=== PATIENT | female | born 1955 | race Two or more races ===

== ENCOUNTER 2017-04-02 12:43 | Emergency (ER) | payer MEDICAID ==
[~2017-04-02] VITALS: Ht 157.5 cm; Wt 72.6 kg
[~2017-04-02 12:43] MED LIST: BACTRIM DS TAB1 EAC1 ORAL; HYDROCHLOROTH12.5 M2 ORAL; HYDROCODON-ACE1 EA15 ORAL; IBUPROFEN600 MG ORAL; KEFLEX500 MG ORAL; METFORMIN HCL500 M1 ORAL; NORCO 5-325 TA1 EACH ORAL; TIZANIDINE HCL4 MG ORAL; ZOCOR40 MG ORAL
[2017-04-02 13:00] VITALS: BP 142/91
[2017-04-02 14:34] LABS: APPEARANCE,URINE TURBID; BILIRUBIN, URINE 1+ (NEGATIVE); COLOR,URINE BROWN; GLUCOSE, URINE (UA) NEGATIVE (NEGATIVE); KETONES,URINE NEGATIVE (NEGATIVE); LEUKOCYTE ESTERASE ,URINE 3+ (NEGATIVE); NITRITE,URINE POSITIVE (NEGATIVE); PH,URINE 5 (4.5-8.0); PROTEIN,URINE 3+ (NEGATIVE); UROBILINOGEN,URINE 1 MG/DL (0.0-1.0)
[2017-04-02] MEDS ORDERED: PHENAZOPYRIDIN100 MG ORAL (15:29)
[2017-04-02] MEDS ORDERED: KEFLEX500 MG ORAL (15:29)
[2017-04-02] MEDS ORDERED: Cephalexin 500mg cap ORAL ONE (15:30)
[2017-04-02 15:40] VITALS: BP 142/91
--- NOTE | 2017-04-03 07:14 | Emergency Room Report ---
History of Present Illness General Chief Complaint: Pelvic Pain Source: Patient Present Illness HPI Patient is a 62-year-old female presented after increased urinary frequency as well as burning. Patient gradual onset of symptoms. She reported having a burning sensation for the past 3 days. She subsequently developed some mild bleeding. She had not been having any vomiting or diarrhea. She denied any flank pain. Allergies: Coded Allergies: No Known Allergies (Unverified , 11/23/13) Patient History Past Medical History: see triage record Last Menstrual Period: 14 yrs ago Reviewed Nursing Documentation: PMH: Agreed, PSxH: Agreed Nursing Documentation-PMH Past Medical History: No Stated History Hx Hypertension: Yes Hx Diabetes: Yes Review of Systems All Other Systems: negative except mentioned in HPI Physical Exam Vital Signs Date Time Temp Pulse Resp B/P (MAP) Pulse Ox O2 Delivery O2 Flow Rate FiO2 04/02/17 12:51 98.6 116 16 142/91 100 Room Air General Appearance: well appearing, no apparent distress, alert, GCS 15 Head: normocephalic, atraumatic ENT: hearing grossly normal, normal voice Neck: full range of motion, supple Respiratory: no respiratory distress, speaking full sentences Cardiovascular #1: normal inspection, regular rate, rhythm Gastrointestinal: normal inspection, soft Genitourinary: deferred Musculoskeletal: normal inspection, back normal, gait/station normal, no calf tenderness Neurologic: normal inspection, alert, oriented x3, responsive, bill poster installer III-XII nml as tested, motor strength/tone normal, normal gait Psychiatric: normal inspection, mood/affect normal Skin: no rash Medical Decision Making Diagnostic Impression: Primary Impression: Urinary tract infection Additional Impression: Hematuria ER Course Patient presented for dysuria. Differential diagnosis included was not limited to appendicitis, urinary tract infection, pelvic inflammatory disease, urethritis, herpes among others. The patient presented for what appears to urinary infection. The patient denies any heavy vaginal bleeding however she is advised to followup with DIRECTOR FINANCIAL PLANNING for further evaluation. The patient given oral Keflex. The patient is advised to follow up with primary care doctor in 1 -2 days. Patient is advised to return if any worsening condition or if any changes in status that are concerning. Labs Test 04/02/17 12:57 Urine Color Brown Urine Appearance Turbid Urine pH 5 (4.5-8.0) Urine Specific [place] 1.020 (1.005-1.035) Urine Protein 3+ (NEGATIVE) Urine Glucose (UA) Negative (NEGATIVE) Urine Ketones Negative (NEGATIVE) Urine Occult Blood 5+ (NEGATIVE) Urine Nitrite Positive (NEGATIVE) Urine Bilirubin 1+ (NEGATIVE) Urine Ictotest Negative Urine Urobilinogen 1 MG/DL (0.0-1.0) Urine Leukocyte Esterase 3+ (NEGATIVE) Urine RBC Tntc /HPF (0 - 2) Urine WBC Tntc /HPF (0 - 2) Urine Squamous Epithelial Cells Moderate /LPF (NONE/OCC) Urine Bacteria Moderate /HPF (NONE) Last Vital Signs Date Time Temp Pulse Resp B/P (MAP) Pulse Ox O2 Delivery O2 Flow Rate FiO2 04/02/17 15:40 98.6 78 16 142/91 100 Room Air Status: improved Disposition: HOME, SELF-CARE Condition: Stable Scripts Phenazopyridine Hcl* (PYRIDIUM*) 100 Mg Tablet 100 MG ORAL THREE TIMES A DAY, #6 TAB Prov: Oscar Tavera 04/02/17 Cephalexin* (KEFLEX*) 500 Mg Capsule 500 MG ORAL Q6H, #28 CAP 0 Refills Prov: Oscar Tavera 04/02/17 Patient Instructions: Urinary Tract Infection, [id number] Oscar Tavera Apr 03, 2017 07:14
--- NOTE | 2017-04-03 07:14 | Emergency Room Report ---
History of Present Illness General Chief Complaint: Pelvic Pain Source: Patient Present Illness HPI Patient is a 62-year-old female presented after increased urinary frequency as well as burning. Patient gradual onset of symptoms. She reported having a burning sensation for the past 3 days. She subsequently developed some mild bleeding. She had not been having any vomiting or diarrhea. She denied any flank pain. Allergies: Coded Allergies: No Known Allergies (Unverified , 11/23/13) Patient History Past Medical History: see triage record Last Menstrual Period: 14 yrs ago Reviewed Nursing Documentation: PMH: Agreed, PSxH: Agreed Nursing Documentation-PMH Past Medical History: No Stated History Hx Hypertension: Yes Hx Diabetes: Yes Review of Systems All Other Systems: negative except mentioned in HPI Physical Exam Vital Signs Date Time Temp Pulse Resp B/P (MAP) Pulse Ox O2 Delivery O2 Flow Rate FiO2 04/02/17 12:51 98.6 116 16 142/91 100 Room Air General Appearance: well appearing, no apparent distress, alert, GCS 15 Head: normocephalic, atraumatic ENT: hearing grossly normal, normal voice Neck: full range of motion, supple Respiratory: no respiratory distress, speaking full sentences Cardiovascular #1: normal inspection, regular rate, rhythm Gastrointestinal: normal inspection, soft Genitourinary: deferred Musculoskeletal: normal inspection, back normal, gait/station normal, no calf tenderness Neurologic: normal inspection, alert, oriented x3, responsive, inspector material disposition III-XII nml as tested, motor strength/tone normal, normal gait Psychiatric: normal inspection, mood/affect normal Skin: no rash Medical Decision Making Diagnostic Impression: Primary Impression: Urinary tract infection Additional Impression: Hematuria ER Course Patient presented for dysuria. Differential diagnosis included was not limited to appendicitis, urinary tract infection, pelvic inflammatory disease, urethritis, herpes among others. The patient presented for what appears to urinary infection. The patient denies any heavy vaginal bleeding however she is advised to followup with REGISTERED DIETITIAN for further evaluation. The patient given oral Keflex. The patient is advised to follow up with primary care doctor in 1 -2 days. Patient is advised to return if any worsening condition or if any changes in status that are concerning. Labs Test 04/02/17 12:57 Urine Color Brown Urine Appearance Turbid Urine pH 5 (4.5-8.0) Urine Specific [place] 1.020 (1.005-1.035) Urine Protein 3+ (NEGATIVE) Urine Glucose (UA) Negative (NEGATIVE) Urine Ketones Negative (NEGATIVE) Urine Occult Blood 5+ (NEGATIVE) Urine Nitrite Positive (NEGATIVE) Urine Bilirubin 1+ (NEGATIVE) Urine Ictotest Negative Urine Urobilinogen 1 MG/DL (0.0-1.0) Urine Leukocyte Esterase 3+ (NEGATIVE) Urine RBC Tntc /HPF (0 - 2) Urine WBC Tntc /HPF (0 - 2) Urine Squamous Epithelial Cells Moderate /LPF (NONE/OCC) Urine Bacteria Moderate /HPF (NONE) Last Vital Signs Date Time Temp Pulse Resp B/P (MAP) Pulse Ox O2 Delivery O2 Flow Rate FiO2 04/02/17 15:40 98.6 78 16 142/91 100 Room Air Status: improved Disposition: HOME, SELF-CARE Condition: Stable Scripts Phenazopyridine Hcl* (PYRIDIUM*) 100 Mg Tablet 100 MG ORAL THREE TIMES A DAY, #6 TAB Prov: Oscar Tavera 04/02/17 Cephalexin* (KEFLEX*) 500 Mg Capsule 500 MG ORAL Q6H, #28 CAP 0 Refills Prov: Oscar Tavera 04/02/17 Patient Instructions: Urinary Tract Infection, [id number] Oscar Tavera Apr 03, 2017 07:14
--- NOTE | 2017-04-03 07:14 | Emergency Room Report ---
History of Present Illness General Chief Complaint: Pelvic Pain Source: Patient Present Illness HPI Patient is a 62-year-old female presented after increased urinary frequency as well as burning. Patient gradual onset of symptoms. She reported having a burning sensation for the past 3 days. She subsequently developed some mild bleeding. She had not been having any vomiting or diarrhea. She denied any flank pain. Allergies: Coded Allergies: No Known Allergies (Unverified , 11/23/13) Patient History Past Medical History: see triage record Last Menstrual Period: 14 yrs ago Reviewed Nursing Documentation: PMH: Agreed, PSxH: Agreed Nursing Documentation-PMH Past Medical History: No Stated History Hx Hypertension: Yes Hx Diabetes: Yes Review of Systems All Other Systems: negative except mentioned in HPI Physical Exam Vital Signs Date Time Temp Pulse Resp B/P (MAP) Pulse Ox O2 Delivery O2 Flow Rate FiO2 04/02/17 12:51 98.6 116 16 142/91 100 Room Air General Appearance: well appearing, no apparent distress, alert, GCS 15 Head: normocephalic, atraumatic ENT: hearing grossly normal, normal voice Neck: full range of motion, supple Respiratory: no respiratory distress, speaking full sentences Cardiovascular #1: normal inspection, regular rate, rhythm Gastrointestinal: normal inspection, soft Genitourinary: deferred Musculoskeletal: normal inspection, back normal, gait/station normal, no calf tenderness Neurologic: normal inspection, alert, oriented x3, responsive, executive producer promos III-XII nml as tested, motor strength/tone normal, normal gait Psychiatric: normal inspection, mood/affect normal Skin: no rash Medical Decision Making Diagnostic Impression: Primary Impression: Urinary tract infection Additional Impression: Hematuria ER Course Patient presented for dysuria. Differential diagnosis included was not limited to appendicitis, urinary tract infection, pelvic inflammatory disease, urethritis, herpes among others. The patient presented for what appears to urinary infection. The patient denies any heavy vaginal bleeding however she is advised to followup with IMPLEMENTATION SPECIALIST [facility] for further evaluation. The patient given oral Keflex. The patient is advised to follow up with primary care doctor in 1 -2 days. Patient is advised to return if any worsening condition or if any changes in status that are concerning. Labs Test 04/02/17 12:57 Urine Color Brown Urine Appearance Turbid Urine pH 5 (4.5-8.0) Urine Specific [place] 1.020 (1.005-1.035) Urine Protein 3+ (NEGATIVE) Urine Glucose (UA) Negative (NEGATIVE) Urine Ketones Negative (NEGATIVE) Urine Occult Blood 5+ (NEGATIVE) Urine Nitrite Positive (NEGATIVE) Urine Bilirubin 1+ (NEGATIVE) Urine Ictotest Negative Urine Urobilinogen 1 MG/DL (0.0-1.0) Urine Leukocyte Esterase 3+ (NEGATIVE) Urine RBC Tntc /HPF (0 - 2) Urine WBC Tntc /HPF (0 - 2) Urine Squamous Epithelial Cells Moderate /LPF (NONE/OCC) Urine Bacteria Moderate /HPF (NONE) Last Vital Signs Date Time Temp Pulse Resp B/P (MAP) Pulse Ox O2 Delivery O2 Flow Rate FiO2 04/02/17 15:40 98.6 78 16 142/91 100 Room Air Status: improved Disposition: HOME, SELF-CARE Condition: Stable Scripts Phenazopyridine Hcl* (PYRIDIUM*) 100 Mg Tablet 100 MG ORAL THREE TIMES A DAY, #6 TAB Prov: Oscar Tavera 04/02/17 Cephalexin* (KEFLEX*) 500 Mg Capsule 500 MG ORAL Q6H, #28 CAP 0 Refills Prov: Oscar Tavera 04/02/17 Patient Instructions: Urinary Tract Infection, [id number] Oscar Tavera Apr 03, 2017 07:14
== END 2017-04-02 16:04 | disposition home or self-care (01) ==
LOC: EMR 13:05
DX: N39.0 Urinary tract infection, site not specified (principal); R31.9 Hematuria, unspecified; I10 Essential (primary) hypertension; E11.9 Type 2 diabetes mellitus without complications
CPT/HCPCS: 81003; 87086; 87181; 99284

== ENCOUNTER 2017-06-15 11:01 | Emergency (ER) | payer MEDICAID ==
[~2017-06-15] VITALS: Ht 157.5 cm; Wt 68.0 kg
[~2017-06-15 11:01] MED LIST changes: +PHENAZOPYRIDIN100 MG ORAL
[2017-06-15] MEDS ORDERED: LISINOPRIL40 MG ORAL (11:12)
[2017-06-15] MEDS ORDERED: OMEPRAZOLE20 M2 ORAL (11:12)
[2017-06-15] MEDS ORDERED: Norco 5mg/325mg tab ORAL ONE (12:15)
--- NOTE | 2017-06-15 13:14 | Diagnostic Imaging Report ---
Indication: Pain 3 views of the right knee were obtained. Findings: No acute fracture, malalignment, or joint effusion are identified. Joint space is relatively well-maintained. Marginal spurs are present. Impression: Negative for acute findings.
--- NOTE | 2017-06-15 13:26 | Emergency Room Report ---
History of Present Illness General Chief Complaint: Pain Source: Patient Present Illness HPI 62-year-old female presents to the emergency department complaining of 9/10 in severity right calf and knee pain x3 days. Patient reports that when she walks her pain is exacerbated to 10 out of 10 in severity. Patient states pain began in the posterior calf it then radiated anteriorly and up into the right knee. Patient denies trauma or fall denies recent open wounds, bruises, erythema or increased temperature palpation, denies swelling. Denies history of recent travel or hormone replacement. Denies CP, Palpitations, LOC, AMS, dizziness, Changes in Vision, Sensation, paresthesias, or a sudden severe headache. pmhx of DM and HTN. Allergies: Coded Allergies: No Known Allergies (Unverified , 11/23/13) Patient History Past Medical History: see triage record Past Surgical History: none Pertinent Family History: none Last Menstrual Period: 2005 Reviewed Nursing Documentation: PMH: Agreed, PSxH: Agreed Nursing Documentation-PMH Hx Hypertension: Yes Hx Diabetes: Yes Review of Systems All Other Systems: negative except mentioned in HPI Physical Exam Vital Signs Date Time Temp Pulse Resp B/P (MAP) Pulse Ox O2 Delivery O2 Flow Rate FiO2 06/15/17 11:06 98.1 92 21 162/99 98 Room Air Sp02 EP Interpretation: reviewed, normal General Appearance: no apparent distress, alert, GCS 15, non-toxic Head: normocephalic, atraumatic ENT: hearing grossly normal, normal voice Neck: full range of motion Respiratory: lungs clear, normal breath sounds, speaking full sentences Cardiovascular #1: regular rate, rhythm, no edema, normal capillary refill Cardiovascular #2: 2+ dorsalis pedis (R), 2+ dorsalis pedis (L) Rectal: deferred Genitourinary: normal inspection Musculoskeletal: back normal, gait/station normal, normal range of motion, tender - TTp to the right posterior calf and anterior knee. no obvious swelling , erythema, contusions or palpable effusions. pain exacerbated with leg extension. Neurologic: alert, oriented x3, responsive, motor strength/tone normal, sensory intact, speech normal, grossly normal Psychiatric: judgement/insight normal Skin: normal color, no rash, warm/dry, well hydrated Medical Decision Making PA Attestation Dr. Rivers is my supervising Physician whom patient management has been discussed with. Diagnostic Impression: Primary Impression: Leg pain Qualified Codes: M79.604 - Pain in right leg ER Course 62-year-old female presents to the emergency department complaining of 9/10 in severity right calf and knee pain x3 days. Patient reports that when she walks her pain is exacerbated to 10 out of 10 in severity. Patient states pain began in the posterior calf it then radiated anteriorly and up into the right knee. Patient denies trauma or fall denies recent open wounds, bruises, erythema or increased temperature palpation, denies swelling. Denies history of recent travel or hormone replacement. Denies CP, Palpitations, LOC, AMS, dizziness, Changes in Vision, Sensation, paresthesias, or a sudden severe headache. pmhx of DM and HTN. Ddx considered but are not limited to Cellulitis, DVT, varicose vein, PAD, Venous insufficiency, Arthritis, effusion, gout, septic joint, fracture/sprain just to name a few. Vital signs: are WNL, pt. is afebrile H&PE are most consistent with musculoskeletal pain will r/o DVT. ORDERS: -LE duplex U/s to R/O dvt. : Negative ED INTERVENTIONS: -[place] PO -Orion wrap applied by nuclear fuel processing technician. Pt. remains neurovascularly intact. DISCHARGE: At this time pt. is stable for d/c to home. Will provide printed patient care instructions, and any necessary prescriptions. Care plan and follow up instructions have been discussed with the patient prior to discharge. Other X-Ray Diagnostic Results Other X-Ray Diagnostic Results : # of Views/Limited Vs Complete: 3 View Indication: Pain EP Interpretation: Yes PA Xray: Interpretation reviewed, by supervising MD, and agrees with findings. Interpretation: no dislocation, no soft tissue swelling, no fractures Impression: No acute disease Electronically Signed by: Gogo Burden PA-C Last Vital Signs Date Time Temp Pulse Resp B/P (MAP) Pulse Ox O2 Delivery O2 Flow Rate FiO2 06/15/17 11:06 98.1 92 21 162/99 98 Room Air Disposition: HOME, SELF-CARE Condition: Stable Scripts Naproxen (Naproxen) 250 Mg Tablet 250 MG PO BID, #30 TAB Prov: Gogo Burden 06/15/17 Acetaminophen With Codeine (T#3) (TYLENOL #3 TAB*) Y Tab 1 TAB ORAL Q6H Y for For Pain, #10 TAB Prov: Gogo Burden 06/15/17 Referrals: [facility],REFERRING (PCP) Patient Instructions: Knee Pain, [id number] Additional Instructions: Take medications as directed. Do not drink alcohol, drive, or operate heavy machinery while taking Tylenol #3 as this may cause drowsiness. Follow up with a Primary Care Provider in 3-5 days, even if your symptoms have resolved. --Please review list of primary care clinics, if you do not already have a primary care provider Ultrasound performed today showed no evidence of DVT. Return sooner to ED if new symptoms occur, or current symptoms become worse. - Please note that this Emergency Department Report was dictated using [employer]equipment operation instructor technology software, occasionally this can lead to erroneous entry secondary to interpretation by the dictation equipment. Gogo Burden Jun 15, 2017 13:26
[2017-06-15] MEDS ORDERED: NAPROXEN250 M1 PO (14:06)
[2017-06-15] MEDS ORDERED: ACETAMINOPHEN-1 EAC1 ORAL (14:06)
[2017-06-15 14:15] VITALS: BP 158/96
--- NOTE | 2017-06-26 20:22 | Diagnostic Imaging Report ---
APPROVED REPORT CPT Code: 80008 Present Symptoms Lower Extremity Pain: Right Lower Extremity Edema: Right RIGHT LEG: Venous imaging reveals a patent deep venous system. There is no evidence of thrombus within the femoral, popliteal or tibial segments. The greater saphenous vein is also within normal limits. Doppler indicates normal spontaneous flow within these segments.
== END 2017-06-15 14:15 | disposition home or self-care (01) ==
LOC: EMR 11:45
DX: M79.661 Pain in right lower leg (principal); E11.9 Type 2 diabetes mellitus without complications; I10 Essential (primary) hypertension
CPT/HCPCS: 93971; 99284

== ENCOUNTER 2019-09-17 12:46 | Emergency (ER) | payer MEDICAID ==
[~2019-09-17] VITALS: Ht 157.5 cm; Wt 72.6 kg
[~2019-09-17 12:46] MED LIST changes: +ACETAMINOPHEN-1 EAC1 ORAL; +LISINOPRIL40 MG ORAL; +NAPROXEN250 M1 PO; +OMEPRAZOLE20 M2 ORAL
[2019-09-17 13:00] VITALS: BP 155/92
[2019-09-17] MEDS ORDERED: Bacitracin Oint UD TOPIC ONE ×2 (13:07→13:15)
[2019-09-17] MEDS ORDERED: Morgan Lens TOPIC ONE (13:15)
[2019-09-17] MEDS ORDERED: Fluorescein Strips ONE (15:18)
[2019-09-17] MEDS ORDERED: Tetracaine 0.5% Opth 4ml Soln ONE (15:19)
--- NOTE | 2019-09-17 15:28 | Emergency Room Report ---
History of Present Illness General Chief Complaint: Eye Problems Source: Patient Present Illness HPI 64-year-old female with history of type 2 diabetes, cholesterol currently controlled with medication here complaining of irritation of the left eye after applying new glue to it. Patient reports that she was about to put eyedrops in her eyes however accidentally used glue. This happened last night. Patient was able to get some of the glue out by using topical ointment however complains of pain stable left eye, and irritation. After application of bacitracin ointment you are able to open the eyelashes, and the eye was irrigated. Patient reported improvement of symptoms after irrigation. Reports that when she opens her right arm she feels pain left eye as well. Complains of low vision. Complains of photophobia. Denies any URI symptoms. Allergies: Coded Allergies: No Known Allergies (Unverified , 11/23/13) COVID-19 Screening Contact w/high risk pt: No Recent Travel to affected area: No Experienced COVID-19 symptoms?: No Patient History Past Medical History: see triage record Past Surgical History: none Pertinent Family History: none Now: No Reviewed Nursing Documentation: PMH: Agreed; PSxH: Agreed Nursing Documentation-PMH Past Medical History: No History, Except For Hx Hypertension: Yes Hx Diabetes: Yes Review of Systems All Other Systems: negative except mentioned in HPI Physical Exam Vital Signs Date Time Temp Pulse Resp B/P (MAP) Pulse Ox O2 Delivery O2 Flow Rate FiO2 20/20 12:53 98.6 97 17 155/92 (113) 98 Room Air Sp02 EP Interpretation: reviewed, normal General Appearance: no apparent distress, alert, GCS 15, non-toxic Head: normocephalic, atraumatic Eyes: right eye normal inspection; left eye other - Corneal abrasion; bilateral eye PERRL ENT: hearing grossly normal, normal pharynx, no angioedema, normal voice Neck: full range of motion, supple/symm/no masses Respiratory: chest non-tender, lungs clear, normal breath sounds, speaking full sentences Cardiovascular #1: regular rate, rhythm, no edema Gastrointestinal: non tender, soft Genitourinary: normal inspection Musculoskeletal: normal inspection Neurologic: alert, motor strength/tone normal, oriented x3, sensory intact, responsive, speech normal Psychiatric: judgement/insight normal, memory normal, mood/affect normal, no suicidal/homicidal ideation Skin: no rash Lymphatic: no adenopathy Medical Decision Making PA Attestation All my diagnosis and treatment plans were reviewed ad discussed with my supervising physician Dr. Cavazos Diagnostic Impression: Primary Impression: Corneal abrasion Additional Impression: Acute foreign body of eye ER Course 64-year-old female with history of type 2 diabetes, cholesterol currently controlled with medication here complaining of irritation of the left eye after applying new glue to it. Patient reports that she was about to put eyedrops in her eyes however accidentally used glue. This happened last night. Patient was able to get some of the glue out by using topical ointment however complains of pain stable left eye, and irritation. After application of bacitracin ointment you are able to open the eyelashes, and the eye was irrigated. Patient reported improvement of symptoms after irrigation. Reports that when she opens her right arm she feels pain left eye as well. Complains of low vision. Complains of photophobia. Denies any URI symptoms. Ddx considered but are not limited to: bacterial conjunctivitis, allergic conjunctivitis, viral conjunctivitis, periorbital cellulitis, global trauma Vital signs: are WNL, pt. is afebrile H&PE are most consistent with: Corneal abrasion, foreign body in left eye ORDERS: Ofloxacin ophthalmic, erythromycin ophthalmic ointment ED INTERVENTIONS: Bacitracin ointment, Yong lens, Woodlamp DISCHARGE: At this time pt. is stable for d/c to home. Will provide printed patient care instructions, and any necessary prescriptions. Care plan and follow up instructions have been discussed with the patient prior to discharge. Patient to follow-up with route sales delivery drivers supervisor, use drops as been prescribed, due to corneal abrasion patient to use the ofloxacin ophthalmic and also use erythromycin ointment due to glue exposure. If worsening symptoms return to emergency room. Visual acuity appears to be 20/70 left eye Patient was evaluated in the context of the global COVID-19 pandemic, which necessitated consideration that the patient might be at risk for infection with the SARS-COV-2 virus that causes COVID-19. Institutional protocols and algorithms that pertain to the evaluation of patients at risk for COVID-19 are in a state of rapid change based on information relieved by multiple regulatory bodies including the CDC and the federal and state organizations. These policies and algorithms were followed during the patient's care in the ED. Last Vital Signs Date Time Temp Pulse Resp B/P (MAP) Pulse Ox O2 Delivery O2 Flow Rate FiO2 09/17/19 13:00 98.6 97 17 155/92 98 Room Air Disposition: HOME, SELF-CARE Condition: Stable Scripts Ofloxacin (Ofloxacin) 5 Ml Drops 2 DROP OP Q6HR for 7 Days, #5 ML Prov: Cherie Yost 09/17/19 Erythromycin Base (ERYTHROMYCIN*) 3.5 Gm Oint...g. 1 APPLIC LEFT EYE Q4HR for 5 Days, #3.5 GM 0 Refills Prov: Cherie Yost 09/17/19 Referrals: [facility],REFERRING (PCP) Patient Instructions: Corneal Abrasion, [id number] Additional Instructions: Take medication as directed, follow with route sales delivery drivers supervisor, if worsening symptoms return to the emergency room Cherie Yost Sep 17, 2019 15:28
[2019-09-17] MEDS ORDERED: Tetracaine 0.5% Opth 4ml Soln LEFT EYE ONE (15:30)
[2019-09-17] MEDS ORDERED: Fluorescein Strips LEFT EYE ONE (15:30)
[2019-09-17] MEDS ORDERED: ERYTHROMYCIN3.5 GM LEFT EYE (15:31)
[2019-09-17] MEDS ORDERED: OFLOXACIN10 ML OP (15:31)
[2019-09-17 15:45] VITALS: BP 155/92
== END 2019-09-17 15:45 | disposition home or self-care (01) ==
LOC: EMR 13:19
DX: T15.02XA Foreign body in cornea, left eye, initial encounter (principal); X58.XXXA Exposure to other specified factors, initial encounter; Y92.9 Unspecified place or not applicable; E11.9 Type 2 diabetes mellitus without complications; I10 Essential (primary) hypertension
CPT/HCPCS: 99283